=== PATIENT | male | born 1990 | race Hispanic/Latino ===

== ENCOUNTER 2017-08-22 19:36 | Emergency (ER) | payer OTHER | END 2017-08-22 20:21 | disposition home or self-care (01) | LOC: M ED 19:36 | DX: S63.690A Other sprain of right index finger, initial encounter (principal); X58.XXXA Exposure to other specified factors, initial encounter; Y92.018 Other place in single-family (private) house as the place of occurrence of the external cause | CPT/HCPCS: 73140 ==

== ENCOUNTER 2018-01-06 13:26 | Emergency (ER) | payer OTHER | END 2018-01-06 13:59 | disposition home or self-care (01) | LOC: M ED 13:26 | DX: H01.004 Unspecified blepharitis left upper eyelid (principal); H00.014 Hordeolum externum left upper eyelid; Z87.891 Personal history of nicotine dependence | CPT/HCPCS: 99282 ==

== ENCOUNTER 2019-07-26 10:02 | Emergency (ER) | payer OTHER ==
[~2019-07-26] VITALS: Ht 165.1 cm; Wt 81.9 kg
[~2019-07-26 10:02] MED LIST: AUGM875T28 PO; ERYTOIN8 OP; PENI500T OR; PERC5TAB12 PO
[2019-07-26] MEDS ORDERED: IBUPROFEN 800 MG TAB PO ONE (11:00)
[2019-07-26 11:58] VITALS: BP 117/56
--- NOTE | 2019-07-26 12:11 | REP ---
LEFT THIRD TOE SERIES: HISTORY: Stubbing injury. FINDINGS: Multiple views of the left forefoot show soft tissue swelling of the third toe. No fracture or subluxation is visible. IMPRESSION: No fracture seen. Electronically Signed by Ian Miller MD 07/26/2019 02:57 P
== END 2019-07-26 12:07 | disposition home or self-care (01) ==
LOC: M ED 10:02
DX: S90.32XA Contusion of left foot, initial encounter (principal); W22.8XXA Striking against or struck by other objects, initial encounter; Y92.838 Other recreation area as the place of occurrence of the external cause; Y93.69 Activity, other involving other sports and athletics played as a team or group; Y99.9 Unspecified external cause status; F17.200 Nicotine dependence, unspecified, uncomplicated

== ENCOUNTER 2019-12-17 10:06 | Emergency (ER) | payer OTHER ==
[~2019-12-17] VITALS: Ht 165.1 cm; Wt 82.0 kg
[2019-12-17 11:37] VITALS: BP 134/82
== END 2019-12-17 11:38 | disposition home or self-care (01) ==
LOC: M ED 10:06
DX: S90.821A Blister (nonthermal), right foot, initial encounter (principal); S90.822A Blister (nonthermal), left foot, initial encounter; X50.3XXA Overexertion from repetitive movements, initial encounter; Y92.410 Unspecified street and highway as the place of occurrence of the external cause; Y93.01 Activity, walking, marching and hiking; Y99.1 Military activity; R60.0 Localized edema

== ENCOUNTER 2021-01-16 08:07 | Emergency (ER) | payer OTHER ==
[~2021-01-16] VITALS: Ht 167.6 cm; Wt 85.9 kg
--- OUTSIDE RECORDS SUMMARY | 2021-01-16 08:12 | CCD ---
Author Author [facility] Address Unknown Phone Unavailable Support Name Relationship Address Phone CHARLOTTE CARR Next Of Kin Unknown Unavailable [employer] Next Of Kin [address] [place] [address] Unavailable UE Next Of Kin Unknown Unavailable TAYLERDAMARISWAGNERRolanda ALYSA Next Of Kin [address] [place] [address] ST Next Of Kin Unknown Unavailable ALY[place] [address] ALYSA WRIGHT E[address] [address] [place] [address] Unavailable Re-disclosure Warning The records that you are about to access may contain information from federally-assisted alcohol or drug abuse programs. If such information is present, then the following federally mandated warning applies: This information has been disclosed to you from records protected by federal confidentiality rules (42 CFR part 2). The federal rules prohibit you from making any further disclosure of this information unless further disclosure is expressly permitted by the written consent of the person to whom it pertains or as otherwise permitted by 42 CFR part 2. A general authorization for the release of medical or other information is NOT sufficient for this purpose. The Federal rules restrict any use of the information to criminally investigate or prosecute any alcohol or drug abuse patient.The records that you are about to access may contain highly sensitive health information, the redisclosure of which is protected by Article 27-F of the [facility] Public Health law. If you continue you may have access to information: Regarding HIV / AIDS; Provided by facilities licensed or operated by the [facility] Office of Mental Health; or Provided by the [facility] Office for People With Developmental Disabilities. If such information is present, then the following [facility] mandated warning applies: This information has been disclosed to you from confidential records which are protected by state law. State law prohibits you from making any further disclosure of this information without the specific written consent of the person to whom it pertains, or as otherwise permitted by law. Any unauthorized further disclosure in violation of state law may result in a fine or snf sentence or both. A general authorization for the release of medical or other information is NOT sufficient authorization for further disc losure. Allergies and Adverse Reactions Type Description Substance Reaction Status Data Source(s ) Propensity to adverse reactions NO KNOWN ALLERGIES NO KNOWN ALLERGIES [facility] Propensity to adverse reactions ALLERGIES NOT ON FILE ALLERGIES NOT O N FILE [facility] Encounters Encounter Providers Location Date Indications Data Source(s ) Emergency 05/27/2020 11:46:00 AM EDT - 021 04:11:[address] [facility] Vomiting Patient discharged. Medications Medication Brand Name Start Date Product Form Dose Route Admi nistrative Instructions Pharmacy Instructions Status Indications Reaction Description Data Source(s) Ondansetron 4 MG Disintegrating Oral Tab let ondansetron ODT (Zofran ODT) 4 mg dispersible tablet ondansetron ODT (Zofran ODT) 4 mg dispersible tablet 05/27/2020 12:00:00 AM EDT 4 mg oral completed Take 1 tablet by mouth every 8 (eight) hours if needed for nausea or vomiting for up to [address] [facility] Take 1 tablet by mouth every 8 (eight) h ours if needed for nausea or vomiting for up to 7 days. Insurance Providers Payer name Policy type / Coverage type Policy ID Covered libertarian ID Covered libertarian's relationship to sage Policy Sage Plan Information [facility] ACTIVE DUTY [id number] SP [id number] [facility] [id number] SP [id number] [employer] [place] P [id number] S [id number] Medicaid S [id number] S [id number] SERA CARE MS O [id number] S [id number] [facility] ACTIVE DUTY [id number] SP [id number] ANSI-Commercial [id number] Problems, Conditions, and Diagnoses Code Display Name Description Problem Type Effective Dates Data Source(s) R11.2 Nausea with vomiting, unspecified Nausea with vo miting, unspecified Diagnosis 05/27/2020 12:46:[address] [facility] Abdominal Pain Abdominal Pain Diagnosis 05/27/2020 12:46: [address] [facility] Chills Chills Diagnosis 05/27/2020 12:46:[address] [facility] Diarrhea Diarrhea Diagnosis 05/27/2020 12:46:[address] [facility] Vomiting Vomiting Diagnosis 05/27/2020 12:46:[address] [facility] Vomiting; Chills; Diarrhea Vomiting; Chills; Diarrhea Diagnosis 05/27/2020 11:46:[address] [facility] Surgeries/Procedures Procedure Description Date Indications Data Source(s) YELLOW TOP YELLOW TOP 05/27/2020 03:08:00 PM EDT [facility] LIGHT BLUE TOP LIGHT BLUE TOP 05/27/2020 03:08:[address] [facility] EXTRA TUBES EXTRA TUBES 05/27/2020 03:08:00 PM EDT [facility] CBC AUTO DIFF CBC AUTO DIFF 05/27/2020 03:08:[address] [facility] LIPASE LIPASE 05/27/2020 03:08:00 PM EDT [facility] C-REACTIVE PROTEIN C-REACTIVE PROTEIN 05/27/2020 03:08:[address] [facility] COMPREHENSIVE METABOLIC PANEL COMPREHENSIVE METABOLIC PANEL 05/27/2020 03:08:[address] [facility] CBC WITH AUTO DIFFERENTIAL CBC WITH AUTO DIFFERENTIAL 2020 03:08:[address] [facility] COVID-19, POC COVID-19, POC 05/27/2020 12:58:[address] [facility] URINALYSIS WITH REFLEX MICROSCOPIC URINALYSIS WITH REFLEX VA CROSCOPIC 05/27/2020 12:30:[address] [facility] PERFORM POC COVID-19 PERFORM POC COVID-19 05/27/2020 12:10:[address] [facility] Results ID Date Data Source [id number] 06/06/2020 09:33:00 AM EDT [facility] Name Value Range Interpretation Code Description Data Sunita rce(s) Supporting Document(s) SARS coronavirus 2 RNA Not Detected [facility] This lab was ordered by [facility] and reported by [facility]. ID Date Data Source [id number] 05/27/2020 04:07:[address] [facility] Name Value Range Interpretation Code Description Data Sunita rce(s) Supporting Document(s) SODIUM (MMOL/L) IN SER/PLAS 135-146 Un [facility] POTASSIUM (MMOL/L) IN SER/PLAS 3.5-5.3 [facility] CHLORIDE (MMOL/L) IN SER/PLAS 98-107 [facility] CARBON DIOXIDE, TOTAL (MMOL/L) IN SER/PLAS 21-32 [facility] ANION GAP IN SER/PLAS 5-15 [facility] UREA NITROGEN (MG/DL) IN SER/PLAS 7-23 [facility] CREATININE (MG/DL) IN SER/PLAS 0.7-1.3 [facility] UREA NITROGEN/CREATININE (MASS RATIO) IN SER/PLAS [facility] GLUCOSE (MG/DL) IN SER/PLAS 65-99 Above high normal [facility] CALCIUM (MG/DL) IN SER/PLAS 8.4-10.4 Un [facility] ASPARTATE AMINOTRANSFERASE (SGOT) (U/L) IN SER/PLAS <59 [facility] ALANINE AMINOTRANSFERASE (SGPT) (U/L) IN SER/PLAS <50 [facility] ALKALINE PHOSPHATASE (U/L) IN SER/PLAS 38-126 [facility] PROTEIN (G/DL) IN SER/PLAS 6.3-8.2 Above high normal [facility] ALBUMIN (G/DL) IN SER/PLAS 3.5-5.0 Uni [facility] ALBUMIN/GLOBULIN (G/G RATIO) IN SER/PLAS [facility] BILIRUBIN TOTAL (MG/DL) IN SER/PLAS 0.1-1.3 [facility] GLOMERULAR FILTRATION RATE ML/MIN/1.73 SQ M.PREDICTED >60 [facility] ID Date Data Source [id number] 05/27/2020 04:07:[address] [facility] Name Value Range Interpretation Code Description Data Sunita rce(s) Supporting Document(s) C REACTIVE PROTEIN (MG/L) IN SER/PLAS <=0.9 Above hig h normal [facility] ID Date Data Source [id number] 05/27/2020 04:07:[address] [facility] Name Value Range Interpretation Code Description Data Sunita rce(s) Supporting Document(s) LIPASE (U/L) IN SER/PLAS <300 [facility] ID Date Data Source [id number] 05/27/2020 03:45:[address] [facility] Name Value Range Interpretation Code Description Data Sunita rce(s) Supporting Document(s) LEUKOCYTES(10*3/UL) IN BLOOD BY AUTOMATED COUNT 4.0-10.5 [facility] ERYTHROCYTES (10*6/UL) IN BLOOD BY AUTOMATED COUNT 4.00-5. 80 [facility] HEMOGLOBIN (G/DL) IN BLOOD 13.0-18.0 Uni [facility] HEMATOCRIT (%) IN BLOOD BY AUTOMATED COUNT 37.0-50.0 [facility] ERYTHROCYTE MEAN CORPUSCULAR VOLUME (FL) BY AUTOMATED COUNT 77.0-100.0 [facility] ERYTHROCYTE MEAN CORPUSCULAR HEMOGLOBIN (PG) BY AUTOMATED COUNT 26.0-33.0 [facility] ERYTHROCYTE MEAN CORPUSCULAR HEMOGLOBIN CONCENTRATION (G/DL) BY AUTOMATED 31.0-36.0 [facility] ERYTHROCYTE DISTRIBUTION WIDTH (RATIO) BY AUTOMATED COUNT 12.0-17.0 [facility] PLATELET MEAN VOLUME (FL) IN BLOOD BY AUTOMATED COUNT 8.0- 12.0 [facility] NEUTROPHILS/100 LEUKOCYTES IN BLOOD BY AUTOMATED COUNT 35.0-75.0 Above high normal [facility] LYMPHOCYTES/100 LEUKOCYTES IN BLOOD BY AUTOMATED COUNT 20.0-42.0 Below low normal [facility] MONOCYTES/100 LEUKOCYTES IN BLOOD BY AUTOMATED COUNT 0.0-[address] [facility] EOSINOPHILS/100 LEUKOCYTES IN BLOOD BY AUTOMATED COUNT <=[address] [facility] BASOPHILS/100 LEUKOCYTES IN BLOOD BY AUTOMATED COUNT <=2.0 [facility] NEUTROPHILS (10*3/UL) IN BLOOD BY AUTOMATED COUNT 1.40 -8.40 Above high normal [facility] LYMPHOCYTES (10*3/UL) IN BLOOD BY AUTOMATED COUNT 1.00 -4.00 Below low normal [facility] MONOCYTES (10*3/UL) IN BLOOD BY AUTOMATED COUNT 0.00-1.50 [facility] EOSINOPHILS (10*3/UL) IN BLOOD BY AUTOMATED COUNT <=0.70 [facility] BASOPHILS (10*3/UL) IN BLOOD BY AUTOMATED COUNT <=0.10 [facility] PLATELETS (10*3/UL) IN BLOOD AUTOMATED COUNT 125-425 [facility] IMMATURE NEUTROPHILS/100 LEUKOCYTES IN BLOOD BY AUTOMATED COUNT <=0.5 [facility] IMMATURE NEUTROPHILS (10*3/UL) IN BLOOD BY AUTOMATED COUNT <=0.40 [facility] ID Date Data Source [id number] 05/27/2020 01:06:[address] [facility] Name Value Range Interpretation Code Description Data Sunita rce(s) Supporting Document(s) SARS CORONAVIRUS 2, POC Negative [facility] ID Date Data Source [id number] 05/27/2020 12:58:00 PM EDT [facility] Name Value Range Interpretation Code Description Data Sunita rce(s) Supporting Document(s) SARS-CoV-2 RdRp gene Resp Ql SHANTAL+probe Negative [facility] This lab was ordered by [facility] and reported by [facility]. ID Date Data Source [id number] 05/27/2020 12:57:[address] [facility] Name Value Range Interpretation Code Description Data Sunita rce(s) Supporting Document(s) COLOR OF URINE Yellow, Light Yellow, Straw, Clear, Colorle ss, Dark Yellow [facility] CLARITY OF URINE Clear [facility] PH OF URINE 5.0, 5.5, 6.0, 6.5, 7.0, 7.5 [facility] LEUKOCYTE ESTERASE PRESENCE IN URINE BY TEST STRIP Negativ e, Trace [facility] NITRITE PRESENCE IN URINE Negative [facility] PROTEIN IN URINE BY TEST STRIP Negative, Trace [facility] GLUCOSE IN URINE Normal [facility] BILIRUBIN, PRESENCE IN URINE Negative [facility] SPECIFIC GRAVITY OF URINE 1.005-1.030 [facility]ES (MG/DL) IN URINE Negative, Trace [facility] UROBILINOGEN (MG/DL) IN URINE Normal [facility] HEMOGLOBIN PRESENCE IN URINE Negative [facility] ID Date Data Source [id number] 04/17/2020 09:08:00 AM [facility] Name Value Range Interpretation Code Description Data Sunita rce(s) Supporting Document(s) SARS coronavirus 2 RNA Not Detected [facility] This lab was ordered by [facility] and reported by [facility]. Procedure Social History Code Duration Value Status Description Data Source(s ) Tobacco use and exposure 05/27/2020 12:00:00 AM EDT Never used [facility] Alcohol intake 05/27/2020 12:00:00 AM EDT Current drinker of al cohol (finding) [facility] Tobacco smoking status NHIS 05/27/2020 12:00:00 AM EDT Never smoker [facility] Vital Signs ID Date Data Source [id number] 05/31/2020 03:29:[address] [facility] Name Value Range Interpretation Code Description Data Source(s) WEIGHT 180.[address] [facility] HEIGHT [address] [facility]
[2021-01-16] MEDS ORDERED: methocarbamoL 500 MG TAB PO ONE (11:00)
[2021-01-16] MEDS ORDERED: KETOROLAC 30 MG/ML 1ML VIAL IM ONE (11:00)
--- OUTSIDE RECORDS SUMMARY | 2021-01-16 11:06 | CCD ---
Author Author [facility] Address Unknown Phone Unavailable Support Name Relationship Address Phone CHARLOTTE CARR Next Of Kin Unknown Unavailable [employer] Next Of Kin [address] [place] [address] Unavailable UE Next Of Kin Unknown Unavailable TAYLERDAMARISGRACE ALYSA Next Of Kin [address] [place] [address] ST Next Of Kin Unknown Unavailable ALYSA OLSON [place] [address] ALYSA WRIGHT [address] [address] [place] [address] Unavailable Re-disclosure Warning The records that you [...] is protected by Article 27-F of the [facility] Public Health law. If you continue you may have access to information: Regarding HIV / AIDS; Provided by facilities licensed or operated by the [facility] Office of Mental Health; or Provided by the [facility] Office for People With Developmental Disabilities. If such information is present, then the following [facility] mandated warning applies: This information [...] law may result in a fine or assisted sentence or both. A general authorization for the release of medical or other information is NOT sufficient authorization for further disc losure. Allergies and Adverse Reactions Type Description Substance Reaction Status Data Source(s ) Propensity to adverse reactions NO KNOWN ALLERGIES NO KNOWN ALLERGIES [facility] Propensity to adverse reactions ALLERGIES NOT ON FILE ALLERGIES NOT O N FILE [facility] Encounters Encounter Providers Location Date Indications Data Source(s ) Emergency 05/27/2020 11:46:00 AM EDT - 021 04:11:00 PM EDT Vomiting [facility] Vomiting Patient discharged. Medications Medication Brand Name [...] or vomiting for up to 7 days. [facility] Take 1 tablet by mouth every 8 (eight) h ours if needed for nausea or vomiting for up to 7 days. Insurance Providers Payer name Policy type / Coverage type Policy ID Covered republican ID Covered republican's relationship to sage Policy Sage Plan Information [facility] ACTIVE DUTY [id number] SP [id number] FOR[facility]LY [facility] [id number] SP [id number] Managed Care [place] P [id number] S [id number] Medicaid S [id number] S [id number] [place] [place] O [id number] S [id number] [facility] ACTIVE DUTY [id number] SP [id number] ANSI-Commercial [id number] Problems, Conditions, and Diagnoses Code Display Name Description Problem Type Effective Dates Data Source(s) R11.2 Nausea with vomiting, unspecified Nausea with vo miting, unspecified Diagnosis 05/27/2020 12:46:00 PM EDT [facility] Abdominal Pain Abdominal Pain Diagnosis 05/27/2020 12:46: 00 PM EDT [facility] Chills Chills Diagnosis 05/27/2020 12:46:00 PM ED T [facility] Diarrhea Diarrhea Diagnosis 05/27/2020 12:46:00 PM ED T [facility] Vomiting Vomiting Diagnosis 05/27/2020 12:46:00 PM ED T [facility] Vomiting; Chills; Diarrhea Vomiting; Chills; Diarrhea Diagnosis 05/27/2020 11:46:00 AM EDT [facility] Surgeries/Procedures Procedure Description Date Indications Data Source(s) YELLOW TOP YELLOW TOP 05/27/2020 03:08:00 PM EDT [facility] LIGHT BLUE TOP LIGHT BLUE TOP 05/27/2020 03:08:00 PM EDT [facility] EXTRA TUBES EXTRA TUBES 05/27/2020 03:08:00 PM EDT [facility] CBC AUTO DIFF CBC AUTO DIFF 05/27/2020 03:08:00 PM EDT [facility] LIPASE LIPASE 05/27/2020 03:08:00 PM EDT [facility] C-REACTIVE PROTEIN C-REACTIVE PROTEIN 05/27/2020 03:08:00 PM EDT [facility] COMPREHENSIVE METABOLIC PANEL COMPREHENSIVE METABOLIC PANEL 05/27/2020 03:08:00 PM EDT [facility] CBC WITH AUTO DIFFERENTIAL CBC WITH AUTO DIFFERENTIAL 2020 03:08:00 PM EDT [facility] COVID-19, POC COVID-19, POC 05/27/2020 12:58:00 PM EDT [facility] URINALYSIS WITH REFLEX MICROSCOPIC URINALYSIS WITH REFLEX DC CROSCOPIC 05/27/2020 12:30:00 PM EDT [facility] PERFORM POC COVID-19 PERFORM POC COVID-19 05/27/2020 12:10:07 PM ED T [facility] Results ID Date Data Source [id number] 06/06/2020 09:33:00 AM EDT [facility] Name Value Range Interpretation Code Description Data Sunita rce(s) Supporting Document(s) SARS coronavirus 2 RNA Not Detected [facility] This lab was ordered by [facility] and reported by [facility]. ID Date Data Source [id number] 05/27/2020 04:07:57 PM EDT [facility] Name Value Range Interpretation Code Description Data Sunita rce(s) Supporting Document(s) SODIUM (MMOL/L) IN SER/PLAS 135-146 Un [facility] POTASSIUM (MMOL/L) IN SER/PLAS 3.5-5.3 [facility] CHLORIDE (MMOL/L) IN SER/PLAS 98-107 [facility] CARBON DIOXIDE, TOTAL (MMOL/L) IN SER/PLAS 21-32 [facility] ANION GAP IN SER/PLAS 5-15 [facility] UREA NITROGEN (MG/DL) IN SER/PLAS 7-23 [facility] CREATININE (MG/DL) IN SER/PLAS 0.7-1.3 [facility] UREA NITROGEN/CREATININE (MASS RATIO) IN SER/PLAS [facility] GLUCOSE (MG/DL) IN SER/PLAS 65-99 Above high normal [facility] CALCIUM (MG/DL) IN SER/PLAS 8.4-10.4 Un [facility] ASPARTATE AMINOTRANSFERASE (SGOT) (U/L) IN SER/PLAS <59 [facility] ALANINE AMINOTRANSFERASE (SGPT) (U/L) IN SER/PLAS <50 [facility] ALKALINE PHOSPHATASE (U/L) IN SER/PLAS 38-126 [facility] PROTEIN (G/DL) IN SER/PLAS 6.3-8.2 Above high normal [facility] ALBUMIN (G/DL) IN SER/PLAS 3.5-5.0 [facility] ALBUMIN/GLOBULIN (G/G RATIO) IN SER/PLAS [facility] BILIRUBIN TOTAL (MG/DL) IN SER/PLAS 0.1-1.3 [facility] GLOMERULAR FILTRATION RATE ML/MIN/1.73 SQ M.PREDICTED >60 [facility] ID Date Data Source [id number] 05/27/2020 04:07:56 PM EDT [facility] Name Value Range Interpretation Code Description Data Sunita rce(s) Supporting Document(s) C REACTIVE PROTEIN (MG/L) IN SER/PLAS <=0.9 Above hig h normal [facility] ID Date Data Source [id number] 05/27/2020 04:07:57 PM EDT [facility] Name Value Range Interpretation Code Description Data Sunita rce(s) Supporting Document(s) LIPASE (U/L) IN SER/PLAS <300 [facility] ID Date Data Source [id number] 05/27/2020 03:45:35 PM EDT [facility] Name Value Range Interpretation Code Description Data Sunita rce(s) Supporting Document(s) LEUKOCYTES(10*3/UL) IN BLOOD BY AUTOMATED COUNT 4.0-10.5 [facility] ERYTHROCYTES (10*6/UL) IN BLOOD BY AUTOMATED COUNT 4.00-5. 80 [facility] HEMOGLOBIN (G/DL) IN BLOOD 13.0-18.0 [facility] HEMATOCRIT (%) IN BLOOD BY AUTOMATED COUNT 37.0-50.0 [facility] ERYTHROCYTE MEAN CORPUSCULAR VOLUME (FL) BY AUTOMATED COUNT 77.0-100.0 [facility] ERYTHROCYTE MEAN CORPUSCULAR HEMOGLOBIN (PG) BY AUTOMATED COUNT 26.0-33.0 [facility] ERYTHROCYTE MEAN CORPUSCULAR HEMOGLOBIN CONCENTRATION (G/DL) BY AUTOMATED 31.0-36.0 [facility] ERYTHROCYTE DISTRIBUTION WIDTH (RATIO) BY AUTOMATED COUNT 12.0-17.0 [facility] PLATELET MEAN VOLUME (FL) IN BLOOD BY AUTOMATED COUNT 8.0- 12.0 [facility] NEUTROPHILS/100 LEUKOCYTES IN BLOOD BY AUTOMATED COUNT 35.0-75.0 Above high normal [facility] LYMPHOCYTES/100 LEUKOCYTES IN BLOOD BY AUTOMATED COUNT 20.0-42.0 Below low normal [facility] MONOCYTES/100 LEUKOCYTES IN BLOOD BY AUTOMATED COUNT 0.0-1 5.0 [facility] EOSINOPHILS/100 LEUKOCYTES IN BLOOD BY AUTOMATED COUNT <=1 0.0 [facility] BASOPHILS/100 LEUKOCYTES IN BLOOD BY AUTOMATED COUNT <=2.0 [facility] NEUTROPHILS (10*3/UL) IN BLOOD BY AUTOMATED COUNT 1.40 -8.40 Above high normal [facility] LYMPHOCYTES (10*3/UL) IN BLOOD BY AUTOMATED COUNT 1.00 -4.00 Below low normal [facility] MONOCYTES (10*3/UL) IN BLOOD BY AUTOMATED COUNT 0.00-1.50 [facility] EOSINOPHILS (10*3/UL) IN BLOOD BY AUTOMATED COUNT <=0.70 [facility] BASOPHILS (10*3/UL) IN BLOOD BY AUTOMATED COUNT <=0.10 [facility] PLATELETS (10*3/UL) IN BLOOD AUTOMATED COUNT 125-425 [facility] IMMATURE NEUTROPHILS/100 LEUKOCYTES IN BLOOD BY AUTOMATED COUNT <=0.5 [facility] IMMATURE NEUTROPHILS (10*3/UL) IN BLOOD BY AUTOMATED COUNT <=0.40 [facility] ID Date Data Source [id number] 05/27/2020 01:06:08 PM EDT [facility] Name Value Range Interpretation Code Description Data Sunita rce(s) Supporting Document(s) SARS CORONAVIRUS 2, POC Negative [facility] ID Date Data Source [id number] 05/27/2020 12:58:00 PM EDT [facility] Name Value Range Interpretation Code Description Data Sunita rce(s) Supporting Document(s) SARS-CoV-2 RdRp gene Resp Ql SHANTAL+probe Negative [facility] This lab was ordered by [facility] and reported by [facility]. ID Date Data Source [id number] 05/27/2020 12:57:09 PM EDT [facility] Name Value Range Interpretation Code Description Data Sunita rce(s) Supporting Document(s) COLOR OF URINE Yellow, Light Yellow, Straw, Clear, Colorle ss, Dark Yellow [facility] CLARITY OF URINE Clear [facility] PH OF URINE 5.0, 5.5, 6.0, 6.5, 7.0, 7.5 [facility] LEUKOCYTE ESTERASE PRESENCE IN URINE BY TEST STRIP Negativ e, Trace [facility] NITRITE PRESENCE IN URINE Negative [facility] PROTEIN IN URINE BY TEST STRIP Negative, Trace [facility] GLUCOSE IN URINE Normal [facility] BILIRUBIN, PRESENCE IN URINE Negative [facility] SPECIFIC GRAVITY OF UR[facility] 1.005-1.030 [facility] K[facility]ES (MG/DL) IN URINE Negative, Trace [facility] UROBILINOGEN (MG/DL) IN URINE Normal [facility] HEMOGLOBIN PRESENCE IN URINE Negative [facility] ID Date Data Source [id number] 04/17/2020 09:08:00 AM EST [facility] Name Value Range Interpretation Code Description Data Sunita rce(s) Supporting Document(s) SARS coronavirus 2 RNA Not Detected [facility] This lab was ordered by [facility] and reported by [facility]. Procedure Social History Code Duration Value Status Description Data Source(s ) Tobacco use and exposure 05/27/2020 12:00:00 AM EDT Never used [facility] Alcohol intake 05/27/2020 12:00:00 AM EDT Current drinker of al cohol (finding) [facility] Tobacco smoking status NHIS 05/27/2020 12:00:00 AM EDT Never smoker [facility] Vital Signs ID Date Data Source [id number] 05/31/2020 03:29:59 PM EDT [facility] Name Value Range Interpretation Code Description Data Source(s) WEIGHT 180.78 lb 180.78 lb [facility] HEIGHT 66 in 66 in [facility]
--- NOTE | 2021-01-16 11:16 | REPVR ---
PROCEDURE INFORMATION: Exam: CT Cervical Spine Without Contrast Exam date and time: 01/16/2021 10:46 AM Age: 30 years old Clinical indication: Injury or trauma; Fall; Blunt trauma; Additional info: Fall from truck 5 foot onto back /back TECHNIQUE: Imaging protocol: Computed tomography images of the cervical spine without contrast. Radiation optimization: All CT scans at this facility use at least one of these dose optimization techniques: automated exposure control; mA and/or kV adjustment per patient size (includes targeted exams where dose is matched to clinical indication); or iterative reconstruction. COMPARISON: No relevant prior studies available. FINDINGS: Bones/joints: No acute fracture. Normal alignment. Discs/Spinal canal/Neural foramina: No significant disc protrusion. No severe spinal canal stenosis. No significant neural foraminal narrowing. Lungs: Lung apices are normal. Soft tissues: Unremarkable. IMPRESSION: No acute findings. Electronically signed by: Shanti Aguilar On 01/16/2021 11:16:18 AM
--- NOTE | 2021-01-16 11:17 | REPVR ---
PROCEDURE INFORMATION: Exam: CT Thoracic Spine Without Contrast Exam date and time: 01/16/2021 10:46 AM Age: 30 years old Clinical indication: Injury or trauma; Fall; Blunt trauma (contusions or hematomas); Additional info: Fall from truck 5 foot onto back /back TECHNIQUE: Imaging protocol: Computed tomography images of the thoracic spine without contrast. Radiation optimization: All CT scans at this facility use at least one of these dose optimization techniques: automated exposure control; mA and/or kV adjustment per patient size (includes targeted exams where dose is matched to clinical indication); or iterative reconstruction. COMPARISON: No relevant prior studies available. FINDINGS: Vertebrae: No acute fracture. Normal alignment. Discs/Spinal canal/Neural foramina: No significant disc protrusion. No severe spinal canal stenosis. No significant neural foraminal narrowing. Soft tissues: Unremarkable. IMPRESSION: No acute fracture. Electronically signed by: Shanti Aguilar On 01/16/2021 11:17:29 AM
--- NOTE | 2021-01-16 11:18 | REPVR ---
PROCEDURE INFORMATION: Exam: CT Lumbar Spine Without Contrast Exam date and time: 01/16/2021 10:46 AM Age: 30 years old Clinical indication: Injury or trauma; Fall; Blunt trauma (contusions or hematomas); Additional info: Fall from truck 5 foot onto back /back TECHNIQUE: Imaging protocol: Computed tomography images of the lumbar spine without contrast. Radiation optimization: All CT scans at this facility use at least one of these dose optimization techniques: automated exposure control; mA and/or kV adjustment per patient size (includes targeted exams where dose is matched to clinical indication); or iterative reconstruction. COMPARISON: No relevant prior studies available. FINDINGS: Vertebrae: No acute fracture. Normal alignment. Discs/Spinal canal/Neural foramina: No significant disc protrusion. No severe spinal canal stenosis. No significant neural foraminal narrowing. Soft tissues: Unremarkable. IMPRESSION: No acute findings. Electronically signed by: Shanti Aguilar On 01/16/2021 11:18:30 AM
[2021-01-16] MEDS ORDERED: METH-1164 PO (11:41)
[2021-01-16 12:10] VITALS: BP 114/60
== END 2021-01-16 12:13 | disposition home or self-care (01) ==
LOC: M ED 08:07
DX: M54.50 Low back pain, unspecified (principal); W01.0XXA Fall on same level from slipping, tripping and stumbling without subsequent striking against object, initial encounter; Y92.9 Unspecified place or not applicable; Y93.9 Activity, unspecified; Y99.1 Military activity
CPT/HCPCS: 72125; 72128; 72131; 96372; 99283; J1885